=== PATIENT | male | born 1985 ===

== ENCOUNTER 2022-05-05 16:23 | Emergency (ER) | payer SELFPAY | END 2022-05-05 16:33 | disposition left against medical advice (07) | LOC: EDBD 16:23 → ER 16:23 | DX: T65.91XA Toxic effect of unspecified substance, accidental (unintentional), initial encounter (principal); Y92.89 Other specified places as the place of occurrence of the external cause; Z53.21 Procedure and treatment not carried out due to patient leaving prior to being seen by health care provider ==